=== PATIENT | female | born 1980 | race Two or more races ===

== ENCOUNTER 2024-08-14 10:33 | Outpatient (AMB) | payer MEDICAID, SELFPAY ==
[2024-08-14 11:27] VITALS: BP 111/72; PULSE 83; RESP 16; TEMP 36.6; O2SAT 98; BMI 33.0
--- NOTE | 2024-08-14 11:27 | OBCLNT_ITS ---
Vital Signs 08/14/24 11:27 Height 1.57 m Height Method Stated Weight 81.817 kg Weight Measurement Method Standing Scale BMI 33.0 BP 111/72 Blood Pressure Source Automatic Cuff Blood Pressure Location Left Upper Arm Position Sitting Respiration 16 Pulse 83 Pulse Source Palpation Temp 97.8 F Temp Source Oral Pulse Oximetry (%) 98 Oxygen Delivery Method Room Air Allergies/Home Meds Allergies & Medications Allergies No Known Allergies Allergy (Verified 08/14/24 11:29) Medication Reconciliation No Known Home Medications 09/21/17 [History Confirmed 08/14/24] Intake Visit Data Collection New Patient or Established: Established Patient (seen at [facility] within 3 years) Reason for Visit:: OB TRANSFER Seen by Clinical Staff ONLY (RN/MA): No Rubber Gasket Inspector 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 1. Little interest or pleasure in doing things: not at all 2. Feeling down, depressed, or hopeless: not at all Total score: 0 PHQ-9 3. Trouble falling or staying asleep, or sleeping too much: Not at all 4. Feeling tired or having little energy: Not at all 5. Poor appetite or overeating: Not at all 6. Feeling bad about yourself - or that you are a failure or have let yourself or your family down: Not at all 7. Trouble concentrating on things, such as reading the newspaper or watching television: Not at all 8. Moving or speaking so slowly that other people could have noticed? - Or the opposite - being so fidgety or restless that you have been moving around a lot more than usual: not at all 9. Thoughts that you would be better off or of hurting yourself in some way: Not at all Total score: 0 Source: Developed by Drs. Marcelo Lema, Raquel Beaulieu, Toni Hillman and colleagues, with an educational stephen from [employer]. Depression screen completed yes Social History Living Situation History Marital Status: Lives With: Family Housing: House Tobacco History Smoking Status: Never smoker Second Hand Smoke Exposure: No Alcohol History Alcohol Intake: Never Domestic Abuse History Do You Feel Safe at Home: Yes Past Medical History Past Medical History Have you ever been diagnosed with any of the following: Neurological Problems Cerebrovascular Accident (CVA): No Transient Ischemic Attacks (TIA): No Dementia: No Alzheimer's Disease: No Parkinson's Disease: No Brain Tumor: No Meningitis: No Seizures: No Epilepsy: No Guillain-[place] Syndrome: No Cardiology Problems Myocardial Infarction: No Cardiac Arrhythmia: No Atrial Fibrillation: No Angina: No Heart Murmur: No Coronary Artery Disease: No Atherosclerotic Heart Disease: No Peripheral Vascular Disease: No Congestive Heart Failure: No Hypertension: No Respiratory Problems Chronic Obstructive Pulmonary Disease (COPD): No Asthma: No Bronchitis: No Emphysema: No Pneumonia: No Hx Cough: No Cough: No Wheezing: No Chest Deformities: No Smoking: No Smoking Cessation Counseling: No Smoking Exposure: No Tobacco Use: No Stomache/Intestinal Problems Liver Cancer: No Hepatitis: No Cirrhosis: No Gall Bladder Disease: No Gastrointestinal Bleed: No Crohn's Disease: No Genital/Urinary Problems Chronic Kidney Disease: No Renal Disease: No Kidney Stones: No Reproductive Problems Breast Cancer: No Endometriosis: No Fibroids: No Pelvic Inflammatory Disease: No Previous Pregnancies: Yes Musculoskeletal Problems Muscular Dystrophy: No Myasthenia Gravis: No Bone Cancer: No Head,Eye,Nose,Throat Problems Cataracts: No Glaucoma: No Blind: No Retinal Detachment: No Macular Degeneration: No Chronic Ear Infections: No Endocrine Problems Diabetes Mellitus Type 1: No Diabetes Mellitus Type 2: No Thyroid Cancer: No Parathyroid Disease: No Pituitary Disease: No Systemic Lupus Erythematosus: No Syndrome of Inappropriate Antidiuretic Hormone: No Blood Problems Anemia: No Leukemia: No Hemophilia: No Thalassemia: No Sickle Cell Disease: No Clotting Problems: No Psychologic Problems Schizophrenia: No Recreational Drug Use: No Bipolar Disorder: No Depression: No Anxiety: No Behavior Problems: No Self-Mutilation: No Attention Deficit Disorder: No Attention Deficit Hyperactivity Disorder: No Depression: No Post Traumatic Stress Disorder: No Eating Disorder: No Other Problems Hospitalization: No Autoimmune Disease: No Down Syndrome: No Autism: No Falls: No Hepatitis A: No Hepatitis B: No Hepatitis C: No Cancer: No Surgical History Angioplasty: No Appendectomy: No Bariatric Surgery: No Additional Surgical History: C SECTION History of Present Illness HPI Narrative Cristal Hunt is a woman of advanced maternal age presenting for transfer of care from [facility]. She is currently at 30 weeks and 1 day gestation based on her last menstrual period of January 14, 2024, with an estimated due date of October 20, 2024. This dating is consistent with both her 15- week 6-day and 21-week 5-day ultrasounds. Patient is 2, para 1, with a history of one previous section in [place]. Her first resulted in a delivery due to premature rupture of membranes at 36 weeks gestation. For her current , she is taking vitamins, iron, and folic acid as prescribed. She reports no concerns about movement, stating the baby is always active. Cristal's primary language is Anguillan, and she required translation assistance during the visit. She has no specific complaints or concerns at this time and appears to be progressing normally in her . The patient and her care team discussed plans for a repeat section at 39 weeks gestation, as well as the possibility of tubal ligation during the procedure. Patient's obstetric history includes A0 L1. Her previous section was performed in [place], approximately 4 weeks before full term due to premature rupture of membranes. Patient is immune to rubella. Her social history notes that she is [place]guillan-speaking and requires a manager technical. OB Initial Visit OB Flowsheet OB Flowsheet Initial Weight: Not Recorded Date -?-?-?-?-?-?-?-?-?-?-?-?- EGA Weight Edema CTX Effacement BP Fundal ht Pres Dilation Effacement Station Visit Note Alb Glu FHR Mov 08/14/24 -?-?-?-?-?-?-?-?-?-?-?-?- 30w 3d 81.817 kg 111/72 Em ent is 2, para 1, with a history of one previous section in [place], transfer of care from [facility]. She is currently at 30 weeks and 1 day gestation based on her last menstrual period of January 14, 2024, with an estimated due date of October 20, 2024. This dating is consistent with both her 15-week 6-day and 21-week 5-day ultrasounds. Diagnostic Test Results and Labs: - Blood tests (03/08/2024): - Blood group: O positive - Rubella: Immune - RPR: Non-reactive - Hepatitis B: Negative - HIV: Negative - Gonorrhea: Negative - Chlamydia: Negative - One-hour glucose tolerance: 128 - NIPT/AFP: Negative - Blood tests (07/19/2024): - Hemoglobin: 12.6 - Platelet count: 243 - Ultrasound (15 weeks 6 days): Consiste nt with LMP-based TRAY of October 20, 2024 - Ultrasound (21 weeks 5 days): Consistent with LMP-based TRAY of 2024 145 active Menstrual History Menstrual reliability: definite Flow: normal Menstrual regularity: regular Monthly: Yes Age at menarche: 14 On control pills at conception: No Associated symptoms (LMP): Reports fatigue OB History : 2 Para: 1 Hx # Pregnancies: 1 # of Living Children: 1 Delivery History 1st : Child's name: GIANNA date: 04/21/[birth year] sex: male Gestational age at delivery (weeks): 37 Delivery type: Delivery complications: NONE History of depression before or after : No Infection History & Risk Evaluation History of STDs: none Genetic Screening & History Genetic Screening/Teratology Counseling - Includes patient, baby's father, or anyone in either family with: 1. Patient's age 35 years or older as of estimated date of delivery: Yes 2. Thalassemia (Chinese, Samoan, Mediterranean, or Background); MCV less than 80: No 3. Neural Tube Defect (Meningomyelocele, Spina Bifida, or Anencephaly): No 4. Congenital Heart Defect: No 5. Down Syndrome: No 6. Ruslan-Sachs (Ashkenazi Yazidi, Cajun, [place] Islander Summers): No 7. Arya Disease (Ashkenazi Yazidi): No 8. Familial Dysautonomia (Ashkenazi Yazidi): No 9. Sickle Cell Disease or Trait (): No 10. Hemophilia or other blood disorders: No 11. Muscular Dystrophy: No 12. Cystic Fibrosis: No 13. [place]'s Chorea: No 14. Mental Retardation/Autism: No 15. Other inherited genetic or chromosomal disorder: No 16. Maternal Metabolic Disorder (EG,TYPE 1 Diabetes, PKU): No 17. Patient or baby's father had a child with defects not listed above: No 18. Recurrent loss or a stillbirth: No 19. Medications (including supplements, vitamins, herbs or otc drugs)/illicit/recreational drugs/alcohol since last menstrual period: No 20. Any other: No Infection History 1. Live with someone with TB or exposed to TB: No 2. Rash or viral illness since last menstrual period: No 3. Hepatitis B,C: No Other (see comments) Source: [employer] Review of Systems Constitutional Constitutional: Reports fatigue Endocrine Endocrine: Reports fatigue Exam General Limitations: no limitations General Appearance: alert, in no apparent distress, comfortable, cooperative, healthy appearing, well developed and well groomed Head Head exam: atraumatic, normocephalic and normal inspection Chest Chest inspection: Present normal inspection and symmetric chest wall rise Abdominal Abdominal exam: Present soft and normal bowel sounds Psych Psychiatric exam: Present normal affect and normal mood Skin Skin exam: Present warm, dry, intact and normal color Assessment & Plan Diagnosis / Problem List (1) Supervision of high risk , unspecified, third trimester: Status: Acute (2) Maternal care for low transverse scar from previous delivery: Status: Acute Plan , 30 weeks 1 day gestation: - Patient is with advanced maternal age presenting for transfer of care. - Last menstrual period: January 14, 2024. Estimated due date: October 20, 2024. - Previous section 4 weeks early in [place] due to premature rupture of membranes. - Current progressing normally with heart rate of 142 bpm. - All screenings and tests to date within normal limits. Plan: - Continue vitamins, iron, and folic acid supplementation. - Schedule repeat section at 39 weeks gestation. - Obtain consent for bilateral tubal ligation to be performed during section. - Follow-up appointment in 2 weeks. - Next round of testing at approximately 34 weeks gestation. - Delivery to take place at [facility]. Office Procedures OB Clinic LOC & Office Proc's Nursing/Assessment Patient Status: Established Patient OB Clinic Nursing Assessment: Medication Reconciliation, Update PMH in EMR and Vital Signs OB Clinic Coordination of Care: AMA, Complex Care and Chronic Disease 1-5, Consent,records obtained, informed consent, Education Simp Pt/Fam, Results/Orders obtained and Staff clarify orders Special Needs: Heart tones Established Patient Charge Established Patient Point Assignment: 140 Established Patient Point Charge: EP Level 4 (120-155)
== END 2024-08-14 11:39 | disposition home or self-care (01) ==
LOC: HODSOBC 10:33
PROVIDERS: Supervising Provider Obstetrics & Gynecology; Visit Provider Obstetrics & Gynecology
DX: O09.523 Supervision of elderly multigravida, third trimester (principal); O09.213 Supervision of pregnancy with history of pre-term labor, third trimester; O34.211 Maternal care for low transverse scar from previous cesarean delivery; Z3A.30 30 weeks gestation of pregnancy
CPT/HCPCS: 99214; G0463

== ENCOUNTER 2024-08-28 10:29 | Outpatient (AMB) | payer MEDICAID, SELFPAY ==
--- NOTE | 2024-08-28 10:49 | OBCLNT_ITS ---
Vital Signs 08/28/24 10:50 Height 1.57 m Height Method Stated Weight 83.121 kg Weight Measurement Method Standing Scale BMI 33.7 BP 114/74 Blood Pressure Source Automatic Cuff Blood Pressure Location Left Upper Arm Position Sitting Respiration 18 Pulse 103 H Pulse Source Monitor Temp 97.2 F Temp Source Oral Pulse Oximetry (%) 98 Oxygen Delivery Method Room Air Allergies/Home Meds Allergies & Medications Allergies No Known Allergies Allergy (Verified 08/28/24 10:51) Medication Reconciliation No Known Home Medications 09/21/17 [History Confirmed 08/28/24] Intake Visit Data Collection New Patient or Established: Established Patient (seen at [facility] within 3 years) Reason for Visit:: Routine visit at 32 weeks and 3 days gestation Seen by Clinical Staff ONLY (RN/MA): No Executive Steward Required: Yes Executive Steward's name/title: ENDY LOGAN/ [employer] S[employer]IOR OFFICER Do You Feel Safe at Home: Yes Authorities Contacted: N/A PCP or OBGYN visit in last 3 months: Yes Date of Last PCP or OBGYN visit: 08/14/24 Hx Now: Yes Are you currently on any form of Control: No Pain Present Currently: No Pain Scale Used: Otoole-Magana/Numerical Pain scale:: 0 Smoking Status Smoking Status: Never smoker Questionnaires Covid-19 Vaccine Questionnaire Has patient been vacinated for Covid-19 Have you been vacinated for Covid-19: Yes PHQ-9 PHQ-2 Over the last 2 weeks, how often have you been bothered by any of the following problems? 1. Little interest or pleasure in doing things: not at all 2. Feeling down, depressed, or hopeless: not at all Total score: 0 PHQ-9 3. Trouble falling or staying asleep, or sleeping too much: Not at all 4. Feeling tired or having little energy: Not at all 5. Poor appetite or overeating: Not at all 6. Feeling bad about yourself - or that you are a failure or have let yourself or your family down: Not at all 7. Trouble concentrating on things, such as reading the newspaper or watching television: Not at all 8. Moving or speaking so slowly that other people could have noticed? - Or the opposite - being so fidgety or restless that you have been moving around a lot more than usual: not at all 9. Thoughts that you would be better off or of hurting yourself in some way: Not at all Total score: 0 If you checked off any problems, how difficult have these problems made it for you to do your work, take care of things at home, or get along with other people?: not difficult at all Source: Developed by Drs. Marcelo Lema, Raquel Beaulieu, Toni Hillman and colleagues, with an educational stephen from [employer]. Depression screen completed yes Social History Living Situation History Lives With: Family Housing: House Tobacco History Smoking Status: Never smoker Second Hand Smoke Exposure: No Alcohol History Alcohol Intake: Never Domestic Abuse History Do You Feel Safe at Home: Yes Past Medical History Past Medical History Have you ever been diagnosed with any of the following: Neurological Problems Cerebrovascular Accident (CVA): No Transient Ischemic Attacks (TIA): No Dementia: No Alzheimer's Disease: No Parkinson's Disease: No Brain Tumor: No Meningitis: No Seizures: No Epilepsy: No Guillain-[place] Syndrome: No Cardiology Problems Myocardial Infarction: No Cardiac Arrhythmia: No Atrial Fibrillation: No Angina: No Heart Murmur: No Coronary Artery Disease: No Atherosclerotic Heart Disease: No Peripheral Vascular Disease: No Congestive Heart Failure: No Hypertension: No Respiratory Problems Chronic Obstructive Pulmonary Disease (COPD): No Asthma: No Bronchitis: No Emphysema: No Pneumonia: No Hx Cough: No Cough: No Wheezing: No Chest Deformities: No Smoking: No Smoking Cessation Counseling: No Smoking Exposure: No Tobacco Use: No Stomache/Intestinal Problems Liver Cancer: No Hepatitis: No Cirrhosis: No Gall Bladder Disease: No Gastrointestinal Bleed: No Crohn's Disease: No Genital/Urinary Problems Renal Disease: No Kidney Stones: No Reproductive Problems Breast Cancer: No Endometriosis: No Fibroids: No Pelvic Inflammatory Disease: No Previous Pregnancies: Yes Musculoskeletal Problems Muscular Dystrophy: No Myasthenia Gravis: No Bone Cancer: No Head,Eye,Nose,Throat Problems Cataracts: No Glaucoma: No Blind: No Retinal Detachment: No Macular Degeneration: No Chronic Ear Infections: No Endocrine Problems Diabetes Mellitus Type 1: No Diabetes Mellitus Type 2: No Thyroid Cancer: No Parathyroid Disease: No Pituitary Disease: No Systemic Lupus Erythematosus: No Syndrome of Inappropriate Antidiuretic Hormone: No Blood Problems Anemia: No Leukemia: No Hemophilia: No Thalassemia: No Sickle Cell Disease: No Clotting Problems: No Psychologic Problems Schizophrenia: No Recreational Drug Use: No Bipolar Disorder: No Depression: No Anxiety: No Behavior Problems: No Self-Mutilation: No Attention Deficit Disorder: No Attention Deficit Hyperactivity Disorder: No Depression: No Post Traumatic Stress Disorder: No Eating Disorder: No Other Problems Hospitalization: No Down Syndrome: No Autism: No Falls: No Hepatitis A: No Hepatitis B: No Hepatitis C: No Cancer: No Surgical History Angioplasty: No Appendectomy: No Bariatric Surgery: No History of Present Illness HPI Narrative - Cristal Hunt is a woman at 32 weeks and 3 days gestation, presenting for a routine visit. - Patient has a history of previous section in [place] at 36 weeks. - She reports: - Baby is active - No contractions - No problems - Patient has an ultrasound appointment scheduled for tomorrow. No contractions/ LOF/VB, reports good FM No SUAZO/VC/RUQ/Epig pain Review of Systems Review of Systems Systems Reviewed: All systems reviewed, normal except as documented Visit OB Visit Log OB Flowsheet Initial Weight: Not Recorded Date -?-?-?-?-?-?-?-?-?-?-?-?- EGA Weight Edema CTX Effacement BP Fundal ht Pres Dilation Effacement Station Visit Note Alb Glu FHR Mov 08/14/24 -?-?-?-?-?-?-?-?-?-?-?-?- 30w 3d 81.817 kg 111/72 Em ent is 2, para 1, with a history of one previous section in [place], transfer of care from [facility]. She is currently at 30 weeks and 1 day gestation based on her last menstrual period of January 14, 2024, with an estimated due date of October 20, 2024. This dating is consistent with both her 15-week 6-day and 21-week 5-day ultrasounds. Diagnostic Test Results and Labs: - Blood tests (03/08/2024): - Blood group: O positive - Rubella: Immune - RPR: Non-reactive - Hepatitis B: Negative - HIV: Negative - Gonorrhea: Negative - Chlamydia: Negative - One-hour glucose tolerance: 128 - NIPT/AFP: Negative - Blood tests (07/19/2024): - Hemoglobin: 12.6 - Platelet count: 243 - Ultrasound (15 weeks 6 days): Consiste nt with LMP-based TRAY of October 20, 2024 - Ultrasound (21 weeks 5 days): Consistent with LMP-based TRAY of [place] 2024 145 active 08/28/24 -?-?-?-?-?-?-?-?-?-?-?-?- 32w 3d 83.121 kg 114/74 No C TX/LOF/VB. Reports good FM. No SUAZO/VS, Epig/RUQ pain. History of prior at 36w in [facility]. Reports no current issues. Fetus active. Maternal HR: 138 bpm. Assessment & Plan: 32w3d with prior . No complaints. Attend ultrasound appointment tomorrow Return next week to review ultrasound Schedule between 10/13?10/20 (ex cluding Wednesday) Reviewed signs of labor and standard counseling active TRAY Calculator Estimated Delivery Date Method Current WG Current Estimate 10/20/24 LMP (Certain) 32w 6d Exam General General Appearance: alert, in no apparent distress and healthy appearing Head Head exam: atraumatic Neck Neck exam: Present normal inspection and trachea midline Chest Chest inspection: Present normal inspection and symmetric chest wall rise External exam: Present normal external exam; Absent tenderness Neuro Neurological exam: Present oriented X3 Psych Psychiatric exam: Present normal affect and normal mood Assessment & Plan Diagnosis / Problem List (1) Maternal care for low transverse scar from previous delivery: Status: Acute (2) Supervision of high risk , unspecified, third trimester: Status: Acute Plan Problem List - , 32 weeks and 3 days gestation - History of previous section Assessment - visit at 32 weeks and 3 days gestation - History of previous section in [place] at 36 weeks - Fetus is active - No contractions reported - No problems reported - Maternal heart rate 138 bpm - Due date is October 20 Plan - Attend ultrasound appointment tomorrow - Return for follow-up visit next week to review ultrasound results - Schedule between October 13 and October 20 (39 weeks to due date), excluding Wednesday Educated the patient on labor signs, including regular contractions, lower back pain, and changes in vaginal discharge. Advised avoiding heavy lifting and getting adequate rest. Instructed to contact the office immediately if any signs occur. Discussed the importance of a balanced diet rich in folic acid, iron, and calcium, and provided a list of recommended and to-avoid foods. Emphasized avoiding high-sugar foods to reduce gestational diabetes risk. Encouraged hydration and frequent, small meals for energy.. Office Procedures OB Clinic LOC & Office Proc's Nursing/Assessment Patient Status: Established Patient OB Clinic Nursing Assessment: Medication Reconciliation, Update PMH in EMR and Vital Signs OB Clinic Coordination of Care: Consent,records obtained, informed consent, Education Simp Pt/Fam, Lab and Imaging orders and Staff clarify orders Special Needs: Heart tones Established Patient Charge Established Patient Point Assignment: 105 Established Patient Point Charge: EP Level 3 (80-115)
[2024-08-28 10:50] VITALS: BP 114/74; PULSE 103; RESP 18; TEMP 36.2; O2SAT 98; BMI 33.7
== END 2024-08-28 11:38 | disposition home or self-care (01) ==
LOC: HODSOBC 10:29
PROVIDERS: Supervising Provider Obstetrics & Gynecology; Visit Provider Obstetrics & Gynecology
DX: O09.523 Supervision of elderly multigravida, third trimester (principal); O09.293 Supervision of pregnancy with other poor reproductive or obstetric history, third trimester; O34.211 Maternal care for low transverse scar from previous cesarean delivery; Z3A.32 32 weeks gestation of pregnancy
CPT/HCPCS: 99213; G0463

== ENCOUNTER 2024-09-04 09:19 | Outpatient (AMB) | payer MEDICAID, SELFPAY ==
--- NOTE | 2024-09-04 09:46 | OBCLNT_ITS ---
Vital Signs 09/04/24 09:58 Height 1.57 m Height Method Stated Weight 83.234 kg Weight Measurement Method Standing Scale BMI 33.7 BP 99/67 Blood Pressure Source Automatic Cuff Blood Pressure Location Left Upper Arm Position Sitting Respiration 18 Pulse 98 Pulse Source Monitor Temp 97.2 F Temp Source Oral Pulse Oximetry (%) 99 Oxygen Delivery Method Room Air Allergies/Home Meds Allergies & Medications Allergies No Known Allergies Allergy (Verified 09/04/24 09:59) Medication Reconciliation No Known Home Medications 09/21/17 [History Confirmed 09/04/24] Intake Visit Data Collection New Patient or Established: Established Patient (seen at [facility] within 3 years) Reason for Visit:: - Routine visit at 33 weeks and 3 days gestation - Swelling (likely referring to lower extremity edema) Seen by Clinical Staff ONLY (RN/MA): No Er Rn Required: Yes 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 1. Little interest or pleasure in doing things: not at all 2. Feeling down, depressed, or hopeless: not at all Total score: 0 PHQ-9 3. Trouble falling or staying asleep, or sleeping too much: Not at all 4. Feeling tired or having little energy: Not at all 5. Poor appetite or overeating: Not at all 6. Feeling bad about yourself - or that you are a failure or have let yourself or your family down: Not at all 7. Trouble concentrating on things, such as reading the newspaper or watching television: Not at all 8. Moving or speaking so slowly that other people could have noticed? - Or the opposite - being so fidgety or restless that you have been moving around a lot more than usual: not at all 9. Thoughts that you would be better off or of hurting yourself in some w ay: Not at all Total score: 0 If you checked off any problems, how difficult have these problems made it for you to do your work, take care of things at home, or get along with other people?: not difficult at all Source: Developed by Drs. Marcelo Lema, Raquel Beaulieu, Toni Hillman and colleagues, with an educational stephen from [employer]. Depression screen completed yes Social History Living Situation History Marital Status: Lives With: Family Housing: House Tobacco History Smoking Status: Never smoker Second Hand Smoke Exposure: No Alcohol History Alcohol Intake: Never Domestic Abuse History Do You Feel Safe at Home: Yes Past Medical History Past Medical History Have you ever been diagnosed with any of the following: Neurological Problems Cerebrovascular Accident (CVA): No Transient Ischemic Attacks (TIA): No Dementia: No Alzheimer's Disease: No Parkinson's Disease: No Brain Tumor: No Meningitis: No Seizures: No Epilepsy: No Guillain-Mitchell Syndrome: No Cardiology Problems Myocardial Infarction: No Cardiac Arrhythmia: No Atrial Fibrillation: No Angina: No Heart Murmur: No Coronary Artery Disease: No Atherosclerotic Heart Disease: No Peripheral Vascular Disease: No Congestive Heart Failure: No Hypertension: No Respiratory Problems Chronic Obstructive Pulmonary Disease (COPD): No Asthma: No Bronchitis: No Emphysema: No Pneumonia: No Hx Cough: No Cough: No Wheezing: No Chest Deformities: No Smoking: No Smoking Cessation Counseling: No Smoking Exposure: No Tobacco Use: No Stomache/Intestinal Problems Liver Cancer: No Hepatitis: No Cirrhosis: No Gall Bladder Disease: No Gastrointestinal Bleed: No Crohn's Disease: No Genital/Urinary Problems Renal Disease: No Kidney Stones: No Reproductive Problems Breast Cancer: No Endometriosis: No Fibroids: No Pelvic Inflammatory Disease: No Previous Pregnancies: Yes Musculoskeletal Problems Muscular Dystrophy: No Myasthenia Gravis: No Bone Cancer: No Head,Eye,Nose,Throat Problems Cataracts: No Glaucoma: No Blind: No Retinal Detachment: No Macular Degeneration: No Chronic Ear Infections: No Endocrine Problems Diabetes Mellitus Type 1: No Diabetes Mellitus Type 2: No Thyroid Cancer: No Parathyroid Disease: No Pituitary Disease: No Systemic Lupus Erythematosus: No Syndrome of Inappropriate Antidiuretic Hormone: No Blood Problems Anemia: No Leukemia: No Hemophilia: No Thalassemia: No Sickle Cell Disease: No Clotting Problems: No Psychologic Problems Schizophrenia: No Recreational Drug Use: No Bipolar Disorder: No Depression: No Anxiety: No Behavior Problems: No Self-Mutilation: No Attention Deficit Disorder: No Attention Deficit Hyperactivity Disorder: No Depression: No Post Traumatic Stress Disorder: No Eating Disorder: No Other Problems Hospitalization: No Down Syndrome: No Autism: No Falls: No Hepatitis A: No Hepatitis B: No Hepatitis C: No Cancer: No Surgical History Angioplasty: No Appendectomy: No Bariatric Surgery: No History of Present Illness HPI Narrative - Cristal Hunt is a 44-year-old ( 2, para 1) woman presenting for a visit at 33 weeks and 3 days gestation. - She has a history of one previous section. - Patient reports swelling in her legs. - Denies associated headaches or stomach pain. - She denies any other symptoms or concerns. - A repeat section is scheduled for October 13, 2024, at 39 weeks and 0 days gestation. No contractions/ LOF/VB, reports good FM No SUAZO/VC/RUQ/Epig pain Care OB Visit Log OB Flowsheet Initial Weight: Not Recorded Date -?-?-?-?-?-?-?-?-?-?-?-?- EGA Weight Edema CTX Effacement BP Fundal ht Pres Dilation Effacement Station Visit Note Alb Glu FHR Mov 08/14/24 -?-?-?-?-?-?-?-?-?-?-?-?- 30w 3d 81.817 kg 111/72 Em ent is 2, para 1, with a history of one previous section in [place], transfer of care from [facility]. She is currently at 30 weeks and 1 day gestation based on her last menstrual period of January 14, 2024, with an estimated due date of October 20, 2024. This dating is consistent with both her 15-week 6-day and 21-week 5-day ultrasounds. Diagnostic Test Results and Labs: - Blood tests (03/08/2024): - Blood group: O positive - Rubella: Immune - RPR: Non-reactive - Hepatitis B: Negative - HIV: Negative - Gonorrhea: Negative - Chlamydia: Negative - One-hour glucose tolerance: 128 - NIPT/AFP: Negative - Blood tests (07/19/2024): - Hemoglobin: 12.6 - Platelet count: 243 - Ultrasound (15 weeks 6 days): Consiste nt with LMP-based TRAY of October 20, 2024 - Ultrasound (21 weeks 5 days): Consistent with LMP-based TRAY of [place] 2024 145 active 08/28/24 -?-?-?-?-?-?-?-?-?-?-?-?- 32w 3d 83.121 kg 114/74 No C TX/LOF/VB. Reports good FM. No SUAZO/VS, Epig/RUQ pain. [facility] Reports no current issues. Fetus active. Maternal HR: 138 bpm. Assessment & Plan: 32w3d with prior . No complaints. Attend ultrasound appointment tomorrow Return next week to review ultrasound Schedule between 10/13?10/20 (ex cluding Wednesday) Reviewed signs of labor and standard counseling active 09/04/24 -?-?-?-?-?-?-?-?-?-?-?-?- 33w 3d 83.234 kg 99/[address] X/LOF/VB, reports good FM. No SUAZO/VC/RUQ/Epig pain. Reports swelling, attributed to uterine compression of venous return. No c/o SUAZO or abdominal pain. FHR: 152 bpm, normal. Scheduled RCS: 10/13/2024 at 39w0d, 7:30 AM. Assessment & Plan: Uncomplicated at 33w3d with ph ysiologic edema Continue routine care Hospital will contact patient this week regarding monitoring F/u in 2 weeks RCS planned with prior incision site; us e dissolvable sutures Post-op care: limited activity x7?10 days, resume normal activities thereafter 155 active TRAY Calculator Estimated Delivery Date Method Current WG Current Estimate 10/20/24 LMP (Certain) 33w 4d Assessment & Plan Diagnosis / Problem List (1) Supervision of high risk , unspecified, third trimester: Status: Acute (2) Maternal care for low transverse scar from previous delivery: Status: Acute Plan Problem List - , third trimester - History of section - Edema Assessment - Intrauterine at 33 weeks and 3 days gestation - History of one previous section - Scheduled for repeat section at 39 weeks and 0 days - Presence of lower extremity edema, likely due to uterine pressure on venous return - Absence of headaches or abdominal pain - heart rate 152 bpm, noted as normal Plan - Repeat section scheduled for 10/13/2024 at 39 weeks 0 days, 7:30 AM - Use existing scar for incision during - Hospital to contact patient this week for monitoring arrangements - Detailed instructions to be provided closer to the date - Follow-up appointment in 2 weeks Educated the patient on labor signs, including regular contractions, lower back pain, and changes in vaginal discharge. Advised avoiding heavy lifting and getting adequate rest. Instructed to contact the office immediately if any signs occur. Discussed the importance of a balanced diet rich in folic acid, iron, and calcium, and provided a list of recommended and to-avoid foods. Emphasized avoiding high-sugar foods to reduce gestational diabetes risk. Encouraged hydration and frequent, small meals for energy.. Office Procedures OB Clinic LOC & Office Proc's Nursing/Assessment Patient Status: Established Patient OB Clinic Nursing Assessment: BP Monitoring, Medication Reconciliation, Update PMH in EMR and Vital Signs OB Clinic Coordination of Care: Consent,records obtained, informed consent, Results/Orders obtained and Staff clarify orders Special Needs: Heart tones Established Patient Charge Established Patient Point Assignment: 95 Established Patient Point Charge: EP Level 3 (80-115)
[2024-09-04 09:58] VITALS: BP 99/67; PULSE 98; RESP 18; TEMP 36.2; O2SAT 99; BMI 33.7
== END 2024-09-04 10:13 | disposition home or self-care (01) ==
LOC: HODSOBC 09:19
PROVIDERS: PCP Obstetrics & Gynecology; Referring Provider Obstetrics & Gynecology; Supervising Provider Obstetrics & Gynecology; Visit Provider Obstetrics & Gynecology
DX: O09.293 Supervision of pregnancy with other poor reproductive or obstetric history, third trimester (principal); O34.211 Maternal care for low transverse scar from previous cesarean delivery; Z3A.33 33 weeks gestation of pregnancy
CPT/HCPCS: 99213; G0463

== ENCOUNTER 2024-09-19 10:32 | Outpatient (AMB) | payer MEDICAID, SELFPAY ==
[2024-09-19 10:47] VITALS: BP 111/72; PULSE 81; RESP 16; TEMP 36.4; O2SAT 97; BMI 34.1
--- NOTE | 2024-09-19 10:47 | OBCLNT_ITS ---
Vital Signs 09/19/24 10:47 Height 1.57 m Height Method Stated Weight 84.085 kg Weight Measurement Method Standing Scale BMI 34.1 BP 111/72 Blood Pressure Source Automatic Cuff Blood Pressure Location Right Upper Arm Position Sitting Respiration 16 Pulse 81 Pulse Source Monitor Temp 97.5 F Temp Source Oral Pulse Oximetry (%) 97 Oxygen Delivery Method Room Air Allergies/Home Meds Allergies & Medications Allergies No Known Allergies Allergy (Verified 09/19/24 10:48) Medication Reconciliation No Known Home Medications 09/21/17 [History Confirmed 09/19/24] Intake Visit Data Collection New Patient or Established: Established Patient (seen at [facility] within 3 years) Reason for Visit:: CARE Seen by Clinical Staff ONLY (RN/MA): No Pharmacy Ancillary Required: Yes Pharmacy Ancillary's name/title: ENDY LOGAN Do You Feel Safe at Home: Yes Authorities Contacted: N/A PCP or OBGYN visit in last 3 months: Yes Hx Now: Yes Are you currently on any form of Control: No Pain Present Currently: No Pain Scale Used: Otoole-Magana/Numerical Pain scale:: 0 Smoking Status Smoking Status: Never smoker Questionnaires Covid-19 Vaccine Questionnaire Has patient been vacinated for Covid-19 Have you been vacinated for Covid-19: Yes PHQ-9 PHQ-2 Over the last 2 weeks, how often have you been bothered by any of the following problems? 1. Little interest or pleasure in doing things: not at all 2. Feeling down, depressed, or hopeless: not at all Total score: 0 PHQ-9 3. Trouble falling or staying asleep, or sleeping too much: Not at all 4. Feeling tired or having little energy: Not at all 5. Poor appetite or overeating: Not at all 6. Feeling bad about yourself - or that you are a failure or have let yourself or your family down: Not at all 7. Trouble concentrating on things, such as reading the newspaper or watching television: Not at all 8. Moving or speaking so slowly that other people could have noticed? - Or the opposite - being so fidgety or restless that you have been moving around a lot more than usual: not at all 9. Thoughts that you would be better off or of hurting yourself in some way: Not at all Total score: 0 Source: Developed by Drs. Marcelo Lema, Raquel Beaulieu, Toni Hillman and colleagues, with an educational stephen from [employer]. 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 - Patient transferred care from another facility at 30 weeks and 1 day gestation. - History of one previous section performed in [place]. - Reports baby is active. - States everything is going well. - Confirms awareness of scheduled section date on October 13. No contractions/ LOF/VB, reports good FM No SUAZO/VC/RUQ/Epig pain Care OB Visit Log OB Flowsheet Initial Weight: Not Recorded Date -?-?-?-?-?-?-?-?-?-?-?-?- EGA Weight BP Alb Glu CTX Pres Fundal ht FHR Mov Dilation Station Effacement Hx Notes Visit Note 08/14/24 -?-?-?-?-?-?-?-?-?-?-?-?- 30w 3d 81.817 kg 111/72 145 active Patient is 2, para 1, with a history of one previous section in [place], transfer of care from [facility]. She is currently at 30 weeks and 1 day gestation based on her last menstrual period of January 14, 2024, with an estimated due date of October 20, 2024. This dating is consistent with both her 15-week 6-day and 21-week 5-day ultrasounds. Diagnostic Test Results and Labs: - Blood tests (03/08/2024): - Blood group: O positive - Rubella: Immune - RPR: Non-reactive - Hepatitis B: Negative - HIV: Negative - Gonorrhea: Negative - Chlamydia: Negative - One-hour glucose tolerance: 128 - NIPT/AFP: Negative - Blood tests (07/19/2024): - Hemoglobin: 12.6 - Platelet count: 243 - Ultrasound (15 weeks 6 days): Consiste nt with LMP-based TRAY of October 20, 2024 - Ultrasound (21 weeks 5 days): Consistent with LMP-based ED D of October 20, 2024 08/28/24 -?-?-?-?-?-?-?-?-?-?-?-?- 32w 3d 83.121 kg 114/74 active No CTX/LOF/VB. Reports good FM. No SUAZO/VS, Epig/RUQ pain. History of prior at [address] [facility]. Reports no current issues. Fetus active. Maternal HR: 138 bpm. Assessment & Plan: 32w3d with prior . No complaints. Attend ultrasound appointment tomorrow Return next week to review ultrasound Schedule between 10/13?10/20 (ex cluding Wednesday) Reviewed signs of labor and standard counse ling 09/04/24 -?-?-?-?-?-?-?-?-?-?-?-?- 33w 3d 83.234 kg 99/67 155 active No CTX/LOF/VB, reports good FM. No SUAZO/VC/RUQ/Epig pain. Reports swelling, attributed to uterine compression of venous return. No c/o SUAZO or abdominal pain. FHR: 152 bpm, normal. Scheduled RCS: 10/13/2024 at 39w0d, 7:30 AM. Assessment & Plan: Uncomplicated at 33w3d with ph ysiologic edema Continue routine care Hospital will contact patient this week regarding monitoring F/u in 2 weeks RCS planned with prior incision site; us e dissolvable sutures Post-op care: limited activity x7?10 days, resume normal act ivities thereafter 09/19/24 -?-?-?-?-?-?-?-?-?-?-?-?- 35w 4d 84.085 kg 111/72 at 35 weeks and 4 days gestation, presents for routine care. Transferred care at 30w1d. Reports baby is active and no concerns. History of 1 prior section in [place]. Aware of scheduled repeat on October 13. FHT 160 bpm. Plan: Weekly visits scheduled for 10/13 Culture swab at next visit Follow-up with Marilyn next visit precautions reviewed TRAY Calculator Estimated Delivery Date Method Current WG Current Estimate 10/20/24 LMP (Certain) 36w 0d Exam General General Appearance: alert, in no apparent distress and healthy appearing Head Head exam: atraumatic Neck Neck exam: Present normal inspection and trachea midline Chest Chest inspection: Present normal inspection and symmetric chest wall rise External exam: Present normal external exam; Absent tenderness Neuro Neurological exam: Present oriented X3 Psych Psychiatric exam: Present normal affect and normal mood Office Procedures OB Clinic LOC & Office Proc's Nursing/Assessment Patient Status: Established Patient OB Clinic Nursing Assessment: Medication Reconciliation, Update PMH in EMR and Vital Signs OB Clinic Coordination of Care: Complex Care and Chronic Disease 1-5, Consent,records obtained, informed consent, Education Simp Pt/Fam, Lab and Imaging orders and Staff clarify orders Special Needs: Heart tones Established Patient Charge Established Patient Point Assignment: 130 Established Patient Point Charge: EP Level 4 (120-155) Assessment & Plan Diagnosis / Problem List (1) Supervision of high risk , unspecified, third trimester: Status: Acute (2) Maternal care for low transverse scar from previous delivery: Status: Acute Plan Problem List - , 35 weeks and 4 days gestation - History of previous section Assessment - Intrauterine at 35 weeks and 4 days gestation - History of one previous section - heart rate 160 bpm, noted as normal Plan - Weekly visits scheduled - scheduled for October 13 - Culture swab to be performed at next visit - Subsequent visit to include Marilyn (possibly referring to another healthcare provider) Educated the patient on labor signs, including regular contractions, lower back pain, and changes in vaginal discharge. Advised avoiding heavy lifting and getting adequate rest. Instructed to contact the office immediately if any signs occur. Discussed the importance of a balanced diet rich in folic acid, iron, and calcium, and provided a list of recommended and to-avoid foods. Emphasized avoiding high-sugar foods to reduce gestational diabetes risk. Encouraged hydration and frequent, small meals for energy..
== END 2024-09-19 11:00 | disposition home or self-care (01) ==
LOC: HODSOBC 10:32
PROVIDERS: PCP Obstetrics & Gynecology; Referring Provider Obstetrics & Gynecology; Supervising Provider Obstetrics & Gynecology; Visit Provider Obstetrics & Gynecology
DX: O09.523 Supervision of elderly multigravida, third trimester (principal); O09.293 Supervision of pregnancy with other poor reproductive or obstetric history, third trimester; Z3A.35 35 weeks gestation of pregnancy; O34.211 Maternal care for low transverse scar from previous cesarean delivery
CPT/HCPCS: 99214; G0463

== ENCOUNTER 2024-09-26 14:15 | Outpatient (AMB) | payer MEDICAID, SELFPAY ==
[2024-09-26 14:44] VITALS: BP 107/70; PULSE 92; RESP 17; TEMP 36.3; O2SAT 97; BMI 34.4
--- NOTE | 2024-09-26 14:44 | OBCLNT_ITS ---
Vital Signs 09/26/24 14:44 Height 1.57 m Height Method Stated Weight 84.878 kg Weight Measurement Method Standing Scale BMI 34.4 BP 107/70 Blood Pressure Source Automatic Cuff Blood Pressure Location Right Upper Arm Position Sitting Respiration 17 Pulse 92 Pulse Source Monitor Temp 97.4 F Temp Source Temporal Artery Scan Pulse Oximetry (%) 97 Oxygen Delivery Method Room Air Allergies/Home Meds Allergies & Medications Allergies No Known Allergies Allergy (Verified 09/26/24 14:45) Medication Reconciliation No Known Home Medications 09/21/17 [History Confirmed 09/26/24] Intake Visit Data Collection New Patient or Established: Established Patient [place] [facility] Reason for Visit:: obc Seen by Clinical Staff ONLY (RN/MA): No 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 1. Little interest or pleasure in doing things: not at all 2. Feeling down, depressed, or hopeless: not at all Total score: 0 PHQ-9 3. Trouble falling or staying asleep, or sleeping too much: Not at all 4. Feeling tired or having little energy: Not at all 5. Poor appetite or overeating: Not at all 6. Feeling bad about yourself - or that you are a failure or have let yourself or your family down: Not at all 7. Trouble concentrating on things, such as reading the newspaper or watching television: Not at all 8. Moving or speaking so slowly that other people could have noticed? - Or the opposite - being so fidgety or restless that you have been moving around a lot more than usual: not at all 9. Thoughts that you would be better off or of hurting yourself in some way: Not at all Total score: 0 If you checked off any problems, how difficult have these problems made it for you to do your work, take care of things at home, or get along with other people?: not difficult at all Source: Developed by Raquel HolleyW. Christofer, Toni Hillman and colleagues, with an educational stephen from [employer]. 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 Patient has a history of prior delivery. No contractions, LOF, VB and reports good FM. Denies SUAZO, VC, and epigastric pain. - Cristal Hunt is a 1 para 0101 at 36 weeks and 4 days gestation presenting for routine care. - Estimated due date: October 20, 2024 - Consistent with 2nd trimester ultrasound - Transferred care from [facility] - Previous history of 37-week in [place] - Repeat scheduled for October 13, 2024 - Patient reports: - Active movement - No contractions - No problems - Skin concern: - Unilateral rash - Itchy - Not responsive to cortisone cream - No known mosquito bites Care OB Visit Log OB Flowsheet Initial Weight: Not Recorded Date -?-?-?-?-?-?-?-?-?--?-?-?- EGA Weight BP Alb Glu CTX Pres Fundal ht FHR Mov Dilation Station Effacement Hx Notes Visit Note 08/14/24 -?-?-?-?-?-?-?-?-?-?-?-?- 30w 3d 81.817 kg 111/72 145 active Patient is 2, para 1, with a history of one previous section in [place], transfer of care from [facility]. She is currently at 30 weeks and 1 day gestation based on her last menstrual period of January 14, 2024, with an estimated due date of October 20, 2024. This dating is consistent with both her 15-week 6-day and 21-week 5-day ultrasounds. Diagnostic Test Results and Labs: - Blood tests (03/08/2024): - Blood group: O positive - Rubella: Immune - RPR: Non-reactive - Hepatitis B: Negative - HIV: Negative - Gonorrhea: Negative - Chlamydia: Negative - One-hour glucose tolerance: 128 - NIPT/AFP: Negative - Blood tests (07/19/2024): - Hemoglobin: 12.6 - Platelet count: 243 - Ultrasound (15 weeks 6 days): Consiste nt with LMP-based TRAY of October 20, 2024 - Ultrasound (21 weeks 5 days): Consistent with LMP-based ED D of October 20, 2024 08/28/24 -?-?-?-?-?-?-?-?-?-?-?-?- 32w 3d 83.121 kg 114/74 active No CTX/LOF/VB. Reports good FM. No SUAZO/VS, Epig/RUQ pain. History of prior at 36w in [facility]. Reports no current issues. Fetus active. Maternal HR: 138 bpm. Assessment & Plan: 32w3d with prior . No complaints. Attend ultrasound appointment tomorrow Return next week to review ultrasound Schedule between 10/13?10/20 (ex cluding Wednesday) Reviewed signs of labor and standard counse ling 09/04/24 -?-?-?-?-?-?-?-?-?-?-?-?- 33w 3d 83.234 kg 99/67 155 active No CTX/LOF/VB, reports good FM. No SUAZO/VC/RUQ/Epig pain. Reports swelling, attributed to uterine compression of venous return. No c/o SUAZO or abdominal pain. FHR: 152 bpm, normal. Scheduled RCS: 10/13/2024 at 39w0d, 7:30 AM. Assessment & Plan: Uncomplicated at 33w3d with ph ysiologic edema Continue routine care Hospital will contact patient this week regarding monitoring F/u in 2 weeks RCS planned with prior incision site; us e dissolvable sutures Post-op care: limited activity x7?10 days, resume normal act ivities thereafter 09/19/24 -?-?-?-?-?-?-?-?-?-?-?-?- 35w 4d 84.085 kg 111/72 at 35 weeks and 4 days gestation, presents for routine care. Transferred care at 30w1d. Reports baby is active and no concerns. History of 1 prior section in [place]. Aware of scheduled repeat on October 13. FHT 160 bpm. Plan: Weekly visits scheduled for 10/13 Culture swab at next visit Follow-up with Marilyn next visit precautions reviewed 09/26/24 -?-?-?-?-?-?-?-?-?-?-?-?- 36w 4d 84.878 kg 107/70 at 36w4d, presents for routine care. Transferred care from [facility]. History of prior at 37w in [place]. Repeat scheduled for 10/13/24; TRAY 10/20/24 by 2nd trimester scan. Reports good FM+, no CTX/LOF/VB, denies SUAZO/VC/epig pain. Complains of unilateral itchy rash unresponsive to cortisone. FHT 180 bpm. Plan: Final visit next week Proceed with on 10/13/24 with B TL (cut & burn) Topical cream prescribed for rash, dilut e with moisturizer and apply post-shower Routine counseling: movement, pree clampsia signs, labor precautions Encourage hydration, nutrition, vitamins Monitor for decreased FM or regular CTX TRAY Calculator Estimated Delivery Date Method Current WG Current Estimate 10/20/24 LMP (Certain) 36w 5d Exam General General Appearance: alert, in no apparent distress and healthy appearing Head Head exam: atraumatic Neck Neck exam: Present normal inspection and trachea midline Chest Chest inspection: Present normal inspection and symmetric chest wall rise External exam: Present normal external exam; Absent tenderness Neuro Neurological exam: Present oriented X3 Psych Psychiatric exam: Present normal affect and normal mood Office Procedures OB Clinic LOC & Office Proc's Nursing/Assessment Patient Status: Established Patient OB Clinic Nursing Assessment: Medication Reconciliation, Update PMH in EMR and Vital Signs OB Clinic Coordination of Care: Education Complex Pt/Fam, Consent,records obtained, informed consent, Lab and Imaging orders, Results/Orders obtained and Staff clarify orders Special Needs: Heart tones Established Patient Charge Established Patient Point Assignment: 115 Established Patient Point Charge: EP Level 3 (80-115) Assessment & Plan Diagnosis / Problem List (1) Supervision of high risk , unspecified, third trimester: Status: Acute (2) Maternal care for low transverse scar from previous delivery: Status: Acute Plan Problem List - , 36 weeks and 4 days - History of previous delivery - Scheduled repeat section - Skin rash Assessment at 36 weeks and 4 days gestation presenting for routine care. Patient transferred care from [facility]. TRAY 10/20/2024, consistent with 2nd trimester ultrasound. History of previous section at 37 weeks in [place]. Repeat section scheduled for 10/13/2024. heart rate 180 bpm, within normal limits. Patient reports active movement and denies contractions. Patient also presents with unilateral pruritic rash, possibly dermatitis, unresponsive to [id number] cortisone cream. Plan - Follow-up appointment scheduled for next week (last appointment before C- section) - Repeat scheduled for October 13, 2024 - Bilateral tubal ligation to be performed during (cut and burn metho d, permanent) - Prescribed topical cream for itching: - Instructions: Dilute with moisturizing cream - Apply especially after showering when skin is wet - Continue monitoring activity and for any contractions 1. Progress Reviewed gestational age, growth, and heart rate. Planned frequent visits (every 2 weeks until 36 weeks, then weekly). 2. Instructed patient to monitor movements and report decreases immediately. 3. Testing Counseled on routine third-trimester labs per guidelines. Discussed potential need for ultrasound or monitoring based on risk factors. 4. Preeclampsia Precaution Educated on preeclampsia signs: severe headache, vision changes, right upper quadrant pain, sudden swelling. Advised urgent reporting of symptoms and discussed blood pressure monitoring if high risk. 5. Labor Precautions Reviewed labor signs: regular contractions, pelvic pressure, back pain, bleeding, or fluid leakage. Instructed to seek immediate care for these symptoms. 6. Lifestyle and Delivery Preparation Reinforced vitamins, nutrition, and safe activity. Discussed plan, pain management, and . Advised on labor preparation (e.g., hospital bag) and expectations. 7. Psychosocial Support Assessed emotional well-being and offered resources for mental health or parenting support.
== END 2024-09-26 15:09 | disposition home or self-care (01) ==
LOC: HODSOBC 14:15
PROVIDERS: PCP Obstetrics & Gynecology; Referring Provider Obstetrics & Gynecology; Supervising Provider Obstetrics & Gynecology; Visit Provider Obstetrics & Gynecology
DX: O09.523 Supervision of elderly multigravida, third trimester (principal); O09.293 Supervision of pregnancy with other poor reproductive or obstetric history, third trimester; O34.211 Maternal care for low transverse scar from previous cesarean delivery; O26.893 Other specified pregnancy related conditions, third trimester; L29.9 Pruritus, unspecified; Z3A.36 36 weeks gestation of pregnancy
CPT/HCPCS: 99213; G0463

== ENCOUNTER 2024-10-05 14:22 | Outpatient (AMB) | payer MEDICAID, SELFPAY ==
[2024-10-05 14:44] VITALS: BP 121/76; PULSE 87; RESP 16; TEMP 36.1; O2SAT 98; BMI 34.4
--- NOTE | 2024-10-05 14:44 | OBCLNT_ITS ---
Vital Signs 10/05/24 14:44 Height 1.57 m Height Method Stated Weight 84.822 kg Weight Measurement Method Standing Scale BMI 34.4 BP 121/76 Blood Pressure Source Automatic Cuff Blood Pressure Location Right Upper Arm Position Sitting Respiration 16 Pulse 87 Pulse Source Monitor Temp 97 F Temp Source Oral Pulse Oximetry (%) 98 Oxygen Delivery Method Room Air Allergies/Home Meds Allergies & Medications Allergies No Known Allergies Allergy (Verified 10/05/24 14:45) Medication Reconciliation docusate sodium 100 mg capsule (Stool Softener) 100 mg PO QDAY 30 days #30 caps 10/13/24 [Rx] hydrocodone 5 mg-acetaminophen 325 mg tablet 1 tab PO Q6H PRN pain 7 days #28 tabs 10/13/24 [Rx] ibuprofen 600 mg tablet 600 mg PO Q6H PRN fever or pain 10 days #40 tabs 10/13/24 [Rx] Intake Visit Data Collection New Patient or Established: Established Patient (seen at [facility] within 3 years) Reason for Visit:: CARE Seen by Clinical Staff ONLY (RN/MA): No Coater 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 1. Little interest or pleasure in doing things: not at all 2. Feeling down, depressed, or hopeless: not at all Total score: 0 PHQ-9 3. Trouble falling or staying asleep, or sleeping too much: Not at all 4. Feeling tired or having little energy: Not at all 5. Poor appetite or overeating: Not at all 6. Feeling bad about yourself - or that you are a failure or have let yourself or your family down: Not at all 7. Trouble concentrating on things, such as reading the newspaper or watching television: Not at all 8. Moving or speaking so slowly that other people could have noticed? - Or the opposite - being so fidgety or restless that you have been moving around a lot more than usual: not at all 9. Thoughts that you would be better off or of hurting yourself in some way: Not at all Total score: 0 Source: Developed by Drs. Marcelo Lema, Raquel Beaulieu, Toni Hillman and colleagues, with an educational stephen from [employer]. 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 Patient has a history of prior delivery. No contractions, LOF, VB and reports good FM. Denies SUAZO, VC, and epigastric pain. - Cristal Hunt is a 2, para 1 patient at 37 weeks and 6 days gestation presenting for a routine visit. - She is scheduled for a repeat on October 13, 2024. - At her last appointment, she had complained of a unilateral pruritic rash. - She was prescribed a topical steroid cream for treatment. - Patient reports the cream was not sent last week as expected. - Patient is interested in bilateral tubal ligation. - No current complaints of mosquito bites reported. Care OB Visit Log OB Flowsheet Initial Weight: Not Recorded Date -?-?-?-?-?-?-?-?-?-?-?-?- EGA Weight BP Alb Glu CTX Pres Fundal ht FHR Mov Dilation Station Effacement Hx Notes Visit Note 08/14/24 -?-?-?-?-?-?-?-?-?-?-?-?- 30w 3d 81.817 kg 111/72 145 active Patient is 2, para 1, with a history of one previous section in [place], transfer of care from [facility]. She is currently at 30 weeks and 1 day gestation based on her last menstrual period of January 14, 2024, with an estimated due date of October 20, 2024. This dating is consistent with both her 15-week 6-day and 21-week 5- day ultrasounds. Diagnostic Test Results and Labs: - Blood tests (03/08/2024): - Blood group: O positive - Rubella: Immune - RPR: Non-reactive - Hepatitis B: Negative - HIV: Negative - Gonorrhea: Negative - Chlamydia: Negative - One-hour glucose tolerance: 128 - NIPT/AFP: Negative - Blood tests (07/19/2024): - Hemoglobin: 12.6 - Platelet count: 243 - Ultrasound (15 weeks 6 days): Consiste nt with LMP-based TRAY of October 20, 2024 - Ultrasound (21 weeks 5 days): Consistent with LMP-based ED D of October 20, 2024 08/28/24 -?-?-?-?-?-?-?-?-?-?-?-?- 32w 3d 83.121 kg 114/74 active No CTX/LOF/VB. Reports good FM. No SUAZO/VS, Epig/RUQ pain. History of prior at [address] [facility]. Reports no current issues. Fetus active. Maternal HR: 138 bpm. Assessment & Plan: 32w3d with prior . No complaints. Attend ultrasound appointment tomorrow Return next week to review ultrasound Schedule between 10/13?10/20 (ex cluding Wednesday) Reviewed signs of labor and standard counse ling 09/04/24 -?-?-?--?-?-?-?-?-?-?-?-?- 33w 3d 83.234 kg 99/67 155 active No CTX/LOF/VB, reports good FM. No SUAZO/VC/RUQ/Epig pain. Reports swelling, attributed to uterine compression of venous return. No c/o SUAZO or abdominal pain. FHR: 152 bpm, normal. Scheduled RCS: 10/13/2024 at 39w0d, 7:30 AM. Assessment & Plan: Uncomplicated at 33w3d with ph ysiologic edema Continue routine care Hospital will contact patient this week regarding monitoring F/u in 2 weeks RCS planned with prior incision site; us e dissolvable sutures Post-op care: limited activity x7?10 days, resume normal act ivities thereafter 09/19/24 -?-?-?-?-?-?-?-?-?-?-?-?- 35w 4d 84.085 kg 111/72 at 35 weeks and 4 days gestation, presents for routine care. Transferred care at 30w1d. Reports baby is active and no concerns. History of 1 prior section in [place]. Aware of scheduled repeat on October 13. FHT 160 bpm. Plan: Weekly visits scheduled for 10/13 Culture swab at next visit Follow-up with Marilyn next visit precautions reviewed 09/26/24 -?-?-?-?-?-?-?-?-?-?-?-?- 36w 4d 84.878 kg 107/70 at 36w4d, presents for routine care. Transferred care from [facility]. History of prior at 37w in [place]. Repeat scheduled for 10/13/24; TRAY 10/20/24 by 2nd trimester scan. Reports good FM+, no CTX/LOF/VB, denies SUAZO/VC/epig pain. Complains of unilateral itchy rash unresponsive to cortisone. FHT 180 bpm. Plan: Final visit next week Proceed with on 10/13/24 with B TL (cut & burn) Topical cream prescribed for rash, dilut e with moisturizer and apply post-shower Routine counseling: movement, pree clampsia signs, labor precautions Encourage hydration, nutrition, vitamins Monitor for decreased FM or regular CTX 10/05/24 -?-?-?-?-?-?-?-?-?-?-?-?- 37w 6d 84.822 kg 121/76 2P1@37w6d, prior C/S, pruritic rash. Plan: r epeat C/S with bilateral tubal ligation on 10/13/24, resend steroid cream, educate on tubal ligation, routine weekly visits. TRAY Calculator Estimated Delivery Date Method Current WG Current Estimate 10/20/24 LMP (Certain) 39w 5d Office Procedures OB Clinic LOC & Office Proc's Nursing/Assessment Patient Status: Established Patient OB Clinic Nursing Assessment: Medication Reconciliation, Update PMH in EMR and Vital Signs OB Clinic Coordination of Care: AMA, Complex Care and Chronic Disease 1-5, Consent,records obtained, informed consent, Education Simp Pt/Fam, Lab and Imaging orders, Results/Orders obtained and Staff clarify orders Special Needs: Heart tones Established Patient Charge Established Patient Point Assignment: 155 Established Patient Point Charge: EP Level 4 (120-155) Assessment & Plan Diagnosis / Problem List (1) Encounter for sterilization: Status: Acute (2) Maternal care for low transverse scar from previous delivery: Status: Acute (3) Supervision of high risk , unspecified, third trimester: Status: Acute Plan Problem List - , 37 weeks and 6 days - Pruritic rash, unilateral Assessment at 37 weeks and 6 days gestation presenting for routine visit. Patient is scheduled for repeat section on October 13, 2024. Previously reported unilateral pruritic rash, for which topical steroid cream was prescribed. Patient expresses interest in bilateral tubal ligation. heart rate noted at 150 bpm. Patient reports not receiving the previously prescribed cream. Plan - Repeat scheduled for October 13, 2024 - Patient to check in at 10:00 AM, surgery starts at 12:30 PM (note: time to be double-checked with unit) - Bilateral tubal ligation to be performed during - Resend prescription for topical steroid cream for unilateral pruritic rash - Provide patient education on tubal ligation: no expected side effects, no changes to periods or hormones - Print out relevant information for patient 1. Progress Reviewed gestational age, growth, and heart rate. Planned frequent visits (every 2 weeks until 36 weeks, then weekly). 2. Instructed patient to monitor movements and report decreases immediately. 3. Testing Counseled on routine third-trimester labs per guidelines. Discussed potential need for ultrasound or monitoring based on risk factors. 4. Preeclampsia Precaution Educated on preeclampsia signs: severe headache, vision changes, right upper quadrant pain, sudden swelling. Advised urgent reporting of symptoms and discussed blood pressure monitoring if high risk. 5. Labor Precautions Reviewed labor signs: regular contractions, pelvic pressure, back pain, bleeding, or fluid leakage. Instructed to seek immediate care for these symptoms. 6. Lifestyle and Delivery Preparation Reinforced vitamins, nutrition, and safe activity. Discussed plan, pain management, and . Advised on labor preparation (e.g., hospital bag) and expectations. 7. Psychosocial Support Assessed emotional well-being and offered resources for mental health or parenting support.
== END 2024-10-05 15:15 | disposition home or self-care (01) ==
LOC: HODSOBC 14:22
PROVIDERS: PCP Obstetrics & Gynecology; Referring Provider Obstetrics & Gynecology; Supervising Provider Obstetrics & Gynecology; Visit Provider Obstetrics & Gynecology
DX: O09.293 Supervision of pregnancy with other poor reproductive or obstetric history, third trimester (principal); O34.211 Maternal care for low transverse scar from previous cesarean delivery; Z3A.37 37 weeks gestation of pregnancy; O26.893 Other specified pregnancy related conditions, third trimester; L29.9 Pruritus, unspecified
CPT/HCPCS: 99214; G0463

== ENCOUNTER 2024-10-10 07:40 | Outpatient (RCR) | payer MEDICAID, SELFPAY ==
--- NOTE | 2024-10-03 08:02 | XR_ITS ---
Examination: Biophysical profile, ultrasound Date and time of exam: October 03, 2024 0821 hours INDICATIONS: Diagnosis advanced maternal age Technique: Multiple transabdominal sonographic images of the pelvis abdomen obtained. Attention is directed to the breathing movement, gross body movement, amniotic fluid volume and tone. Findings: Amniotic fluid index 17.4 cm Total biophysical profile is 8 of 8. breathing movement is 2. Gross body movement is 2. tone is 2. Qualitative amniotic fluid volume is 2 Impression: Biophysical profile is 8 of 8.
[2024-10-03 08:44] VITALS: BP 91/54; PULSE 101; RESP 16; TEMP 36.7
--- NOTE | 2024-10-10 08:03 | XR_ITS ---
Examination: Biophysical profile, ultrasound Date and time of exam: October 10, 2024 0808 hours INDICATIONS: Diagnosis advanced maternal age Technique: Multiple transabdominal sonographic images of the pelvis abdomen obtained. Attention is directed to the breathing movement, gross body movement, amniotic fluid volume and tone. Findings: Amniotic fluid index 11.7 cm Total biophysical profile is 8 of 8. breathing movement is 2. Gross body movement is 2. tone is 2. Qualitative amniotic fluid volume is 2 Impression: Biophysical profile is 8 of 8.
[2024-10-10 08:40] VITALS: BP 91/55; PULSE 83; RESP 16; TEMP 36.7
== END 2024-10-10 23:59 | disposition home or self-care (01) ==
LOC: S4S1 07:40
PROVIDERS: PCP Obstetrics & Gynecology; Referring Provider Obstetrics & Gynecology; Visit Provider Obstetrics & Gynecology
DX: O34.211 Maternal care for low transverse scar from previous cesarean delivery (principal); O09.93 Supervision of high risk pregnancy, unspecified, third trimester; Z3A.38 38 weeks gestation of pregnancy; O09.523 Supervision of elderly multigravida, third trimester
CPT/HCPCS: 59025; 76819

== ENCOUNTER 2024-10-13 04:56 | Inpatient (IN) | payer MEDICAID, SELFPAY ==
[2024-10-13] VITALS (37 sets, daily range): BP systolic 0–121; BP diastolic 0–73; PULSE 58–101; RESP 15–20; TEMP 36.5–36.7; O2SAT 94–99; BMI 38.0
[2024-10-13] MEDS: RINGERS LACTATED 1000 ML 1,000 ML 999 ML IV ×2 (05:45→07:18)
[2024-10-13 06:09] LABS: Basophils % (Auto) 1 % (0-2.5); Eosinophils # (Auto) 0.2 Thou/mm3 (0.0-0.5); Eosinophils % (Auto) 3 % (0-10); Hematocrit 40.4 % (36.0-46.0); Immature Granulocytes % (Auto) 2 % (0-0); Immature Granulocytes Auto 0.12 Thou/mm3 (0.00-0.00); Lymphocytes # (Auto) 1.4 Thou/mm3 (1.0-4.8); Lymphocytes % (Auto) 20 % (10-50); Mean Corpuscular HGB Conc 34.7 g/dl (31.0-37.0); Mean Corpuscular Hemoglobin 30.9 pg (25.0-35.0); Mean Corpuscular Volume 89 fL (80-100); Monocytes # (Auto) 0.8 Thou/mm3 (0.0-0.8); Monocytes % (Auto) 12 % (0-12); Neutrophils # (Auto) 4.5 Thou/mm3 (1.8-7.7); Neutrophils % (Auto) 64 % (37-80); Nucleated Red Blood Cell % 0 /100 WBC (0); Platelet Count 193 Thou/mm3 (140-440); RDW Standard Deviation 44.7 fL (36.4-46.3); Red Blood Count 4.53 Miln/mm3 (4.00-5.20)
[2024-10-13 06:32] LABS: Amphetamine/Metham Scrn,Ur OB Negative (Negative); Benzoylecgonine Screen, Ur OB Negative (Negative); Opiate Screen,Urine OB Negative (Negative); THC Screen,Urine OB Negative (Negative)
[2024-10-13 06:34] LABS: Alanine Aminotransferase 20 U/L (10-49); Albumin/Globulin Ratio 1.5 (1.2-2.2); Alkaline Phosphatase 155 U/L (46-116); Anion Gap 12 (7-16); Aspartate Amino Transferase 23 U/L (0-34); BUN/Creatinine Ratio 10 Ratio (12-20); Bilirubin,Total 0.4 mg/dL (0.3-1.2); Blood Urea Nitrogen 5 mg/dL (9-23); Calcium 8.7 mg/dL (8.3-10.6); Calcium (Corrected) 8.7 mg/dL (8.5-10.1); Carbon Dioxide 23.1 mMol/L (20.0-31.0); Chloride 106 mMol/L (98-107); Creatinine (Component) 0.5 mg/dL (0.6-1.3); Estimated Creatinine Clearance 197.8 mL/min (>60); Globulin 2.7 gm/dL (2.3-3.5); Glucose 89 mg/dL (74-106); Osmolality,Calculated 277 (275-295); Potassium 3.8 mMol/L (3.4-5.1); Sodium 141 mMol/L (136-145); Total Protein 6.7 gm/dL (5.7-8.2); eGFR > 60 See Note
[2024-10-13 06:49] LABS: Syphilis Nonreactive (Nonreactive)
[2024-10-13] MEDS: FAMOTIDINE INJ 10 MG/ML VIAL 2 ML 20 MG IV (07:21)
[2024-10-13] MEDS: CITRIC ACID/SODIUM CITR 15 ML UDC (BICITRA) 30 ML PO (07:21)
[2024-10-13] MEDS: ceFAZolin/D5W 2 GM IV 2 GM/100 ML BAG IV (07:21)
--- NOTE | 2024-10-13 07:38 | PD.LDHP ---
Documentation for date of: 10/13/24 OB Labor/Induct. HPI History of Present Illness Chief complaint: Schedule repeat with bilateral tubal ligation : 2 Para: 1 Term pregnancies: 1 pregnancies: 1 Living children: 1 History of sections: Yes Date of last menstrual period: 01/14/24 TRAY: 10/20/24 Gestational age based on last menstrual period: 41 History of present illness: Patient is a 44-year-old female, Para 1001 at 39 weeks gestation, presenting for a scheduled repeat with bilateral tubal ligation. She transferred her care from Dr. Christianson to the current practice, with all records reviewed at 31 weeks gestation. Her estimated due date is October 20, 2024, based on a last menstrual period of January 14, 2024, which is consistent with both her 15 weeks and 6 days, as well as 21-week and 5-day ultrasounds. She currently reports no contractions, leakage of fluid, or vaginal bleeding, and notes adequate movements. At her last visit, she had complained of a pleuritic rash around her umbilicus, which has since resolved. Patient's obstetric history includes L1, with a previous section (details not provided). Her current is at 39 weeks gestation. Medical history includes a resolved pleuritic rash around the umbilicus. Surgical history includes a previous (date not specified). She is currently taking Encephalograms, Pepcid, and Bicitra. The patient is immune to Rubella. Review of systems is negative for contractions, rash, leakage of fluid, and vaginal bleeding. Diagnostic Test Results and Labs: - Blood group: O-positive - Rubella: Immune - RPR: Non-reactive - Hepatitis B: Negative - HIV: Negative - Gonorrhea and chlamydia: Negative - One-hour glucose tolerance test: 128 - NIPT: Negative - AFP: Negative - Ultrasound (15 weeks and 6 days): Consistent with LMP-based TRAY - Ultrasound (21 weeks and 5 days): Consistent with LMP-based TRAY Labs Labs: Negative: RPR, Hepatitis B, Rubella Titre, HIV, Chlamydia and Group Beta Strep and Unknown: Covid-19 Review of Systems Review of Systems Systems Reviewed: All systems reviewed, normal except as documented Past Medical History Surgical History SURGICAL: Positive Section Meds Home Medications and Allergies Allergies Allergy/AdvReac Type Severity Reaction Status Date / Time No Known Allergies Allergy Verified 10/05/24 14:45 OB Exam Physical Exam Vital signs: Temp Pulse Resp BP Pulse Ox O2 Del Method 97.7 F 81 18 113/65 95 Room Air 10/13/24 05:30 10/13/24 07:00 10/13/24 05:30 10/13/24 07:00 10/13/24 07:21 10/13/24 05:30 Constitutional Constitutional: no acute distress Routine HEENT Exam Head: Present normocephalic and atraumatic Eye: Present EOMI and PERRL ENT: Present mucous membranes moist Routine Neck Exam Neck: Present supple and trachea midline Routine Cardiovascular Exam Cardiovascular: Present RRR Routine Abdominal Exam Abdominal: Present soft and normoactive bowel sounds Detailed Labor and Delivery Exam Baseline heart rate: 130 monitor accelerations: 15x15 monitor decelerations: None Routine Extremities Exam Extremities: Present full ROM Routine Skin Exam Skin: Present intact, dry and warm Routine Neurological Exam Neurological: Present alert, oriented X3 and CN II-XII intact Routine Psychiatric Exam Psychiatric: Present normal affect and normal thought process OB Results Labs 10/13/24 05:40 10/13/24 05:40 Labs: Short CBC 10/13/24 Range/Units 05:40 WBC 7.0 (3.6-11.0) Thou/mm3 Hgb 14.0 (12.0-16.0) g/dL Hct 40.4 (36.0-46.0) % Plt Count 193 (140-440) Thou/mm3 BMP 10/13/24 05:40 Sodium 141 Potassium 3.8 Chloride 106 Carbon Dioxide 23.1 BUN 5 L Creatinine 0.5 L Glucose 89 Calcium 8.7 Liver Function 10/13/24 Range/Units 05:40 Total Bilirubin 0.4 (0.3-1.2) mg/dL AST 23 (0-34) U/L ALT 20 (10-49) U/L Alkaline Phosphatase 155 H (46-116) U/L Albumin 4.0 (3.5-5.0) gm/dL OB Assessment & Plan Assessment and Plan (1) Supervision of high risk , unspecified, third trimester: Status: Acute (2) Maternal care for low transverse scar from previous delivery: Status: Acute Assessment and plan: at Term Plan: - Admit to inpatient status for repeat with bilateral tubal ligation. - Verify and obtain signed consent forms. - Administer pre-operative medications: - Reglan - Pepcid - Bicitra - Apply sequential compression devices (SCDs) for DVT prophylaxis. - Establish IV access. - Initiate lactated Ringer's solution at 125 mL/hour for maintenance. - Notify team. - Schedule for operating room. (3) Encounter for sterilization: Status: Acute
--- NOTE | 2024-10-13 08:32 | PD.GYNPROC ---
Operative Note - [employer] Procedure Date of procedure: 10/13/24 Procedure Performed: Repeat section with bilateral salpingectomy Vertical skin incision with low transverse uterine incision Indication: 44-year-old at 39 weeks with previous Desired surgical sterilization Anesthesia type: Spinal Procedure description: Informed consent was obtained. The patient was brought to the operating room and identified with two patient identifiers. She was placed in the supine position, and spinal anesthesia was administered. After confirming adequate anesthesia, the abdomen and perineum were prepped and draped in the usual sterile fashion. A Zapata catheter was inserted for continuous bladder drainage. A vertical midline skin incision was made using a scalpel and carried through subcutaneous tissue to the rectus fascia. The previous skin scar was identified and excised in its entirety. The fascia was incised vertically and dissected off the rectus muscles both superiorly and inferiorly. The rectus bellies were in the midline, and the peritoneum was entered bluntly with the surgeon?s finger. The peritoneal opening was extended to allow adequate exposure. An Donovan O-ring retractor was placed for optimal visualization. The lower uterine segment was palpated, and the bladder flap was reflected inferiorly. A low transverse uterine incision (Savita Barber) was made with a scalpel and extended bluntly. The amniotic membranes were ruptured, and clear fluid was released. The fetus was in vertex presentation. The head was gently elevated out of the maternal pelvis. No vacuum was used. No nuchal cord or other abnormalities were noted. The shoulders and body were delivered smoothly with gentle fundal pressure. The umbilical cord was doubly clamped and cut, and the infant was handed to the awaiting team. Cord gases were obtained. The placenta was delivered with gentle traction on the cord. The uterine cavity was cleared of membranes and clots. The hysterotomy angles were secured with Allis clamps. The uterine incision was closed in two layers using #1 Monocryl: the first layer was a running locked suture to approximate the myometrium, and the second layer imbricated the serosa and myometrium. Hemostasis was confirmed. A bilateral salpingectomy was performed using the ENSEAL device, and both fallopian tubes were removed in their entirety. The Donovan retractor was removed. The peritoneal edges and rectus muscles were reapproximated. The rectus fascia was closed with running 0 PDS suture. The subcutaneous tissue was irrigated with warm saline, and bleeding points were cauterized using Bovie electrocautery. The subcutaneous fat was approximated with 3-0 Vicryl. The skin was closed using metal rodney. A sterile dressing was applied. The patient was cleaned, undraped, and transferred to the recovery room in stable and awake condition. She tolerated the procedure well. No complications were encountered. All counts were correct ?2. Estimated blood loss (ml): 600 Complications: none Surgical staff Operation Date: 10/13/24 07:39 <No data on this case meets the specified criteria> Diagnosis Discharge Diagnosis (1) Supervision of high risk , unspecified, third trimester: Status: Acute (2) Encounter for sterilization: Status: Acute (3) Maternal care for low transverse scar from previous delivery: Status: Acute Problem List Completed Was Problem List Reviewed/Reconciled?: Yes
--- NOTE | 2024-10-13 08:40 | PD.LDDELS ---
Data (Cuevas) Data Hx Section: Yes : 2 Term: 1 : 1 Livin Delivery Data (Cuevas) Anesthesia Type Anesthesia type: Spinal
[2024-10-13] MEDS: DOCUSATE SOD 100 MG CAPSULE PO (11:00)
[2024-10-13] MEDS: OXYTOCIN in NS 20 units 20 UNIT/1,000 ML BAG 125 UNIT IV (12:48)
[2024-10-13] MEDS: IBUPROFEN TAB 400 MG TABLET 800 MG PO ×2 (13:03→21:04)
[2024-10-13] MEDS: HYDROcodone/APAP 5/325 TABLET 2 TAB PO (19:22)
[2024-10-14] VITALS: BP 102/68; PULSE 76; RESP 18; TEMP 36.8; O2SAT 96
[2024-10-14 04:00] VITALS: BP 110/62; PULSE 72; RESP 18; TEMP 37; O2SAT 98
[2024-10-14 05:46] LABS: Basophils # (Auto) 0.1 Thou/mm3 (0.0-0.2); Basophils % (Auto) 0 % (0-2.5); Eosinophils # (Auto) 0.2 Thou/mm3 (0.0-0.5); Eosinophils % (Auto) 1 % (0-10); Hematocrit 35.1 % (36.0-46.0); Hemoglobin 12.3 g/dL (12.0-16.0); Immature Granulocytes % (Auto) 1 % (0-0); Immature Granulocytes Auto 0.09 Thou/mm3 (0.00-0.00); Lymphocytes % (Auto) 7 % (10-50); Mean Corpuscular Hemoglobin 31.2 pg (25.0-35.0); Mean Corpuscular Volume 89 fL (80-100); Monocytes # (Auto) 0.8 Thou/mm3 (0.0-0.8); Monocytes % (Auto) 6 % (0-12); Neutrophils # (Auto) 12.2 Thou/mm3 (1.8-7.7); Neutrophils % (Auto) 85 % (37-80); Nucleated Red Blood Cell % 0 /100 WBC (0); Platelet Count 164 Thou/mm3 (140-440); RDW Standard Deviation 44.7 fL (36.4-46.3); Red Blood Count 3.94 Miln/mm3 (4.00-5.20); White Blood Count 14.4 Thou/mm3 (3.6-11.0)
--- NOTE | 2024-10-14 07:16 | ESPR_ITS ---
RE: LYNDSAY ROLLINS : 1980 DATE OF SERVICE: 10/14/2024 SUBJECTIVE: Postop day #1, the patient denies any problem or complaints. She is voiding. She is ambulating. She is tolerating diet. She is passing flatus. She denies any excessive vaginal bleeding. She denies any dizziness or lightheadedness. She denies any chest pain, palpitations, shortness of breath, or lower extremity pain. OBJECTIVE: Vital Signs: Blood pressure 102/68, heart rate 76, respirations 18, temperature 98.3, pulse oximetry is 96% on room air. Lungs: Clear to auscultation bilaterally. Heart: Regular rate and rhythm. Abdomen: Dressing is dry and intact. Fundus is firm. Extremities: Nontender. LABORATORY DATA: Hemoglobin pre-delivery is 14, post-delivery is pending. ASSESSMENT: Postop day #1 status post delivery and bilateral tubal ligation. PLAN: Remove dressing, discontinue IV, encourage ambulation, support, possible discharge home tomorrow. DT: 05::14 TT: 07:15:00 Ref: [id number] - TID: [id number]
[2024-10-14 08:00] VITALS: BP 110/70; PULSE 89; RESP 16; TEMP 36.9; O2SAT 96
[2024-10-14] MEDS: DOCUSATE SOD 100 MG CAPSULE PO (09:45)
[2024-10-14] MEDS: HYDROcodone/APAP 5/325 TABLET 1 TAB PO (09:45)
[2024-10-14] MEDS: SIMETHICONE 80 MG CHEW PO (09:46)
[2024-10-14] MEDS: Milk Of Magnesia Susp 30 ML UDC PO (09:46)
[2024-10-14] MEDS: IBUPROFEN TAB 400 MG TABLET 800 MG PO (13:17)
[2024-10-14 18:00] VITALS: BP 105/61; PULSE 82; RESP 15; TEMP 36.8; O2SAT 96
[2024-10-14 20:00] VITALS: BP 96/65; PULSE 86; RESP 18; TEMP 36.6; O2SAT 95
[2024-10-14] MEDS: ACETAMINOPHEN 325 MG TABLET 650 MG PO (20:49)
[2024-10-15] MEDS: IBUPROFEN TAB 400 MG TABLET 800 MG PO (02:08)
[2024-10-15 04:00] VITALS: BP 112/82; PULSE 88; RESP 17; TEMP 36.8; O2SAT 96
--- NOTE | 2024-10-15 08:16 | ESPR_ITS ---
RE: LYNDSAY ROLLINS : 1980 DATE OF SERVICE: 10/15/2024 SUBJECTIVE: Postop day #2, patient denies any problem or complaint. She is voiding. She is ambulating. She is tolerating diet. She is passing flatus. She denies any excessive vaginal bleeding. She denies any dizziness or lightheadedness. She denies any chest pain, palpitations, shortness of breath or lower extremity pain. OBJECTIVE: Vital Signs: Blood pressure is 112/82, heart rate 88, respirations 17, temperature is 98.2, and pulse oximetry 96% on room air. Lungs: Clear to auscultation bilaterally. Heart: Regular rate and rhythm. Abdomen: Incision is clean and intact. Fundus is firm. Extremities: Nontender. ASSESSMENT AND PLAN: Postoperative day #2, status post delivery and bilateral salpingectomy. Plan is to discharge home. Discharge instructions given. Follow up in the office with Dr Christianson on POD # 10 for staple removal DT: 06:41:50 TT: 08:14:00 Ref: [id number] - TID: [id number] MTDD
[2024-10-15 09:00] VITALS: BP 119/87; PULSE 77; RESP 17; TEMP 36.8; O2SAT 98
[2024-10-15] MEDS: DOCUSATE SOD 100 MG CAPSULE PO (09:46)
== END 2024-10-15 11:20 | disposition home or self-care (01) | DRG 539 ==
LOC: S4SX 08:08 → S4NX 12:14
PROVIDERS: Admitting Provider Obstetrics & Gynecology; Visit Provider Specialist
PROC: 0UL70ZZ Occlusion of Bilateral Fallopian Tubes, Open Approach (ICD-10-PCS; CPT 59514; principal; 2024-10-13 07:30)
DX: O34.211 Maternal care for low transverse scar from previous cesarean delivery (principal); Z37.0 Single live birth; Z3A.39 39 weeks gestation of pregnancy; Z30.2 Encounter for sterilization
CPT/HCPCS: 36415; 59409; 80053; 80307; 85025; 86780; 86850; 86900; 86901; 94762; A4314; A4649; J0689; J2274; J2371; J2590; J3010; J3490; J7120; A9270; J2270

== ENCOUNTER 2024-11-14 08:19 | Outpatient (AMB) | payer MEDICAID, SELFPAY ==
[2024-11-14 08:53] VITALS: BP 103/70; PULSE 49; RESP 17; TEMP 36.3; O2SAT 97; BMI 31.1
--- NOTE | 2024-11-14 08:53 | AMBOBPPN_ITS ---
Vital Signs 11/14/24 08:53 Height 1.57 m Height Method Stated Weight 76.771 kg Weight Measurement Method Standing Scale BMI 31.1 BP 103/70 Blood Pressure Source Automatic Cuff Blood Pressure Location Right Upper Arm Position Sitting Respiration 17 Pulse 49 L Pulse Source Monitor Temp 97.4 F Temp Source Temporal Artery Scan Pulse Oximetry (%) 97 Oxygen Delivery Method Room Air Allergies/Home Meds Allergies & Medications Allergies No Known Allergies Allergy (Verified 11/14/24 08:54) Medication Reconciliation No Known Home Medications 11/14/24 [History Confirmed 11/14/24] Intake Visit Data Collection New Patient or Established: Established Patient (seen at [facility] within 3 years) Reason for Visit:: Seen by Clinical Staff ONLY (RN/MA): No Auto Design Detailer Required: Yes Auto Design Detailer's name/title: YVONNE DELONG Do You Feel Safe at Home: Yes Authorities Contacted: N/A PCP or OBGYN visit in last 3 months: Yes Date of Last PCP or OBGYN visit: 10/15/24 Hx Now: No Are you currently on any form of Control: No Pain Present Currently: No Pain Scale Used: Otoole-Magana/Numerical Pain scale:: 0 Smoking Status Smoking Status: 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: Past Medical History Past Medical History: No Hx Neurological Disorders, No Hx Breast Cancer, No Hx Cardiac Disorders, No Hx Hypertension, No Hx Cancer, No Hx Blood Disorders, No Hx Anemia, No Hx Renal Disease, No Hx Diabetes Mellitus Type 1, No Hx Diabetes Mellitus Type 2, No Hx Tubal Ligation and No Hx Hysterectomy Questionnaires Covid-19 Vaccine Questionnaire Has patient been vacinated for Covid-19 Have you been vacinated for Covid-19: No Social History Living Situation History Marital Status: Lives With: Family Housing: Apartment Tobacco History Smoking Status: Never smoker Second Hand Smoke Exposure: No Alcohol History Alcohol Intake: Never Domestic Abuse History Do You Feel Safe at Home: Yes EPDS - PP Depression Screening [place] Pospartum Depression Screen I have been able to laugh and see the funny side of things: (0) As much as I always could I have looked forward with enjoyment to things: (0) As much as I ever did I have blamed myself unnecessarily when things went wrong: (0) No, never I have been anxious or worried for no good reason: (0) No, not at all I have felt scared or panicky for no very good reason: (0) No, not at all Things have been getting on top of me: (0) No, I have been coping as well as ever I have been so unhappy that I have had difficulty sleeping: (0) No, not at all I have felt sad or miserable: (2) Yes, quite often I have been so unhappy that I have been crying: (0) No, never The thought of harming myself has occurred to me: (0) Never EPDS completed yes Care OB Visit Log OB Flowsheet Initial Weight: Not Recorded Date -?-?-?-?-?-?-?-?-?-?-?-?- EGA Weight BP Alb Glu CTX Pres Fundal ht FHR Mov Dilation Station Effaceme nt Hx Notes Visit Note 08/14/24 -?-?-?-?-?-?-?-?-?-?-?-?- 30w 3d 81.817 kg 111/72 145 active Patient is 2, para 1, with a history of one previous section in [place], transfer of care from [facility]. She is currently at 30 weeks and 1 day gestation based on her last menstrual period of January 14, 2024, with an estimated due date of October 20, 2024. This dating is consistent with both her 15-week 6-day and 21-week 5-day ultrasounds. Diagnostic Test Results and Labs: - Blood tests (03/08/2024): - Blood group: O positive - Rubella: Immune - RPR: Non-reactive - Hepatitis B: Negative - HIV: Negative - Gonorrhea: Negative - Chlamydia: Negative - One-hour glucose tolerance: 128 - NIPT/AFP: Negative - Blood tests (07/19/2024): - Hemoglobin: 12.6 - Platelet count: 243 - Ultrasound (15 weeks 6 days): Consiste nt with LMP-based TRAY of October 20, 2024 - Ultrasound (21 weeks 5 days): Consistent with LMP-based ED D of October 20, 2024 08/28/24 -?-?-?-?-?-?-?-?-?-?-?-?- 32w 3d 83.121 kg 114/74 active No CTX/LOF/VB. Reports good FM. No SUAZO/VS, Epig/RUQ pain. History of prior at 36w in [facility]. Reports no current issues. Fetus active. Maternal HR: 138 bpm. Assessment & Plan: 32w3d with prior . No complaints. Attend ultrasound appointment tomorrow Return next week to review ultrasound Schedule between 10/13?10/20 (ex cluding Wednesday) Reviewed signs of labor and standard counse ling 09/04/24 -?-?-?-?-?-?-?-?-?-?-?-?- 33w 3d 83.234 kg 99/67 155 active No CTX/LOF/VB, reports good FM. No SUAZO/VC/RUQ/Epig pain. Reports swelling, attributed to uterine compression of venous return. No c/o SUAZO or abdominal pain. FHR: 152 bpm, normal. Scheduled RCS: 10/13/2024 at 39w0d, 7:30 AM. Assessment & Plan: Uncomplicated at 33w3d with ph ysiologic edema Continue routine care Hospital will contact patient this week regarding monitoring F/u in 2 weeks RCS planned with prior incision site; us e dissolvable sutures Post-op care: limited activity x7?10 days, resume normal act ivities thereafter 09/19/24 -?-?-?-?-?-?-?-?-?-?-?-?- 35w 4d 84.085 kg 111/72 at 35 weeks and 4 days gestation, presents for routine care. Transferred care at 30w1d. Reports baby is active and no concerns. History of 1 prior section in [place]. Aware of scheduled repeat on October 13. FHT 160 bpm. Plan: Weekly visits scheduled for 10/13 Culture swab at next visit Follow-up with Marilyn next visit precautions reviewed 09/26/24 -?-?-?-?-?-?-?-?-?-?-?-?- 36w 4d 84.878 kg 107/70 at 36w4d, presents for routine care. Transferred care from [facility]. History of prior at 37w in [place]. Repeat scheduled for 10/13/24; TRAY 10/20/24 by 2nd trimester scan. Reports good FM+, no CTX/LOF/VB, denies SUAZO/VC/epig pain. Complains of unilateral itchy rash unresponsive to cortisone. FHT 180 bpm. Plan: Final visit next week Proceed with on 10/13/24 with B TL (cut & burn) Topical cream prescribed for rash, dilut e with moisturizer and apply post-shower Routine counseling: movement, pree clampsia signs, labor precautions Encourage hydration, nutrition, vitamins Monitor for decreased FM or regular CTX 10/05/24 -?-?-?-?-?-?-?-?-?-?--?-?- 37w 6d 84.822 kg 121/76 2P1@37w6d, prior C/S, pruritic rash. Plan: repeat C/S with bilateral tubal ligation on 10/13/24, resend steroid cream, educate on tubal ligation, routine weekly visits. TRAY Calculator Estimated Delivery Date Method Current WG Current Estimate 10/20/24 LMP (Certain) 44w 0d HPI Interval History: Patient reports experiencing some burning sensation in the surgical area following a repeat section performed on October 13, 2024. The burning sensation is localized to the section incision site. No specific onset or duration is mentioned, but it appears to be an ongoing issue since the surgery. Movement is suggested as a factor that may alleviate the discomfort by breaking up adhesions. The patient is currently her . She is a female patient presenting for a 4-week visit. Her overall recovery appears to be progressing well, with the incision site described as looking really good upon examination. The clinician reassures the patient that this sensation is expected to resolve within another month. Obstetric history includes G2 T2 L2. She delivered twins via repeat section on October 13, 2024, and has a previous section (date not specified). The patient does not report any other issues or concerns at this time. Exam Narrative Physical exam: - Abdomen: incision site examined. Incision looks really good . Office Procedures OB Clinic LOC & Office Proc's Nursing/Assessment Patient Status: Established Patient OB Clinic Nursing Assessment: Medication Reconciliation, Update PMH in EMR and Vital Signs OB Clinic Coordination of Care: Complex Care and Chronic Disease 1-5, Consent,records obtained, informed consent, Education Simp Pt/Fam and Staff clarify orders Established Patient Charge Established Patient Point Assignment: 85 Post Follow-up Visit Post Follow up Visit: Yes Assessment & Plan Diagnosis / Problem List (1) Encounter for sterilization: Status: Acute (2) Supervision of high risk , unspecified, third trimester: Status: Acute (3) Maternal care for low transverse scar from previous delivery: Status: Acute Plan status: - Patient is 4 weeks following a repeat section on October 13, 2024. - Incision site appears to be healing well on examination. - Patient reports some burning sensation in the incision area, consistent with normal healing process. - No other complications or concerns reported or identified. Plan: - No further restrictions on physical activity, including sexual intercourse. - Encourage increased movement to aid in healing process. - Return to clinic in one month if any issues arise. - Otherwise, no scheduled follow-up required if patient continues to do well.
== END 2024-11-14 10:16 | disposition home or self-care (01) ==
LOC: HODSOBC 08:19
PROVIDERS: Supervising Provider Obstetrics & Gynecology; Visit Provider Obstetrics & Gynecology
DX: Z39.2 Encounter for routine postpartum follow-up (principal)